=== PATIENT | female | born 1965 | race Two or more races ===

== ENCOUNTER → 2019-03-20 | Outpatient (CLI) | payer OTHER | LOC: RADMRIMAIN 15:23 | PROVIDERS: ATTEND Family Medicine | DX: Z53.9 Procedure and treatment not carried out, unspecified reason (principal) ==

== ENCOUNTER → 2019-03-27 | Outpatient (CLI) | payer OTHER ==
--- NOTE | 2019-03-27 14:35 | MR ---
EXAMINATION TYPE: MR brain wo con DATE OF EXAM: 03/27/2019 COMPARISON: NONE HISTORY: confusion/hallucinations, head trauma T1-weighted sagittal, T2, FLAIR, and diffusion axial, and T2 coronal coronal views of the brain are s ubmitted. There is no evidence of acute ischemia. Changes of chronic sinusitis. Motion artifact limits the exam . There is abnormal attenuation the periventricular white matter with ex vacuo dilation of the left f rontal horn suggestive of previous ischemia. Area of low signal seen on T2 imaging may represent a va scular anomaly or previous hemorrhage and postcontrast imaging suggested. Multiple additional other a reas of abnormal signal are seen scattered throughout the white matter bilaterally. Areas of abnormal signal involving the jeanette may be artifactual. Craniocervical junction maintained. Sella turcica has a normal appearance. Thinning of the corpus dc losum noted. No cerebellopontine angle mass. Report called to referring clinician by telephone. IMPRESSION: 1. There is multiple areas of abnormal signal involving the white matter bilaterally with most marked findings involving the frontal white matter suggestive of remote microvascular ischemia. Demyelinati ng process, ADEM not excluded, correlate clinically. 2. Within the right and left frontal white matter there is additional areas of low signal which may r epresent vascular anomaly, calcification or previous hemorrhage. Post contrast MRI imaging and MRA re commended.
== END | disposition home or self-care (01) ==
LOC: RADMRIMAIN 08:29
PROVIDERS: ATTEND Family Medicine
DX: R90.89 Other abnormal findings on diagnostic imaging of central nervous system (principal); R41.0 Disorientation, unspecified; R44.3 Hallucinations, unspecified
CPT/HCPCS: 70551

== ENCOUNTER → 2019-04-04 | Outpatient (CLI) | payer OTHER ==
--- NOTE | 2019-04-04 14:06 | MR ---
EXAMINATION TYPE: MR brain w con DATE OF EXAM: 04/04/2019 COMPARISON: MRI of the brain dated 03/27/2019 HISTORY: Abnormal mri of brain TECHNIQUE: Multiplanar, multisequence images of the brain and brainstem is performed with IV contrast only, util izing 10 mL intravenous Gadavist . FINDINGS: Postcontrast T1 and FLAIR imaging was performed to evaluate the bifrontal white matter signal abnorma lity seen on the prior MRI of 03/27/2019. In the deep white matter in the area of curvilinear GRE and T2 serpiginous hypointensity there is no abnormal enhancement. Therefore these regions of encephalomalacia with internal serpiginous low inten sity either related to sequela of prior injury and microhemorrhage or calcifications that could be co nfirmed on CT. Within the remainder of the brain there is no suspicious postcontrast enhancement. There is slight ex vacuo dilatation of the anterior horn of the left lateral ventricle noted. Mild mucosal thickening i n the ethmoid and right maxillary sinuses are again seen. IMPRESSION: No abnormal enhancement in the bifrontal white matter in the region of the signal abnorma lity seen on the prior MRI of 03/27/2019 therefore the prior findings relate to either prior injury wi th microhemorrhage or calcifications. CT could assess for calcifications if there is further clinical concern.
--- NOTE | 2019-04-04 14:16 | MR ---
EXAMINATION TYPE: MR angio head wo con DATE OF EXAM: 04/04/2019 COMPARISON: MRI brain dated 03/27/2019 and 04/04/2019 HISTORY: Confusion / Hallucinations / Abn MRI TECHNIQUE: Time of flight images focusing on the [place] were performed without contrast.. 2-D and 3-D postprocessing imaging is performed. FINDINGS: No abnormal enhancement or abnormal vascular anomaly is seen in the bifrontal periventricular white m atter at the location of the previously seen signal abnormality on the prior MRI of 03/27/2019. The vertebral arteries are codominant. The basilar artery and posterior circulation appear patent. Th e intracranial portions of the internal carotid arteries are within normal limits. The posterior comm unicating arteries are either diminutive or hypoplastic. [place] is not definitively intact. No focal aneurysm, hemodynamically significant stenosis, dissection, or focal occlusion of the major intracranial vasculature is seen. IMPRESSION: No abnormal enhancement or vascular abnormalities in the bifrontal white matter in the re gion of the previously seen signal abnormality on the exam of 03/27/2019. No evidence of major intracr anial vascular aneurysm, hemodynamically significant stenosis, dissection or focal occlusion.
== END ==
LOC: RADMRIMAIN 11:56
PROVIDERS: ATTEND Physician Assistant
DX: R41.0 Disorientation, unspecified (principal); R44.3 Hallucinations, unspecified; Z87.828 Personal history of other (healed) physical injury and trauma; Z87.820 Personal history of traumatic brain injury
CPT/HCPCS: 70544; 70552; A9585

== ENCOUNTER 2021-08-30 05:31 | Inpatient (IN) | payer OTHER ==
[2021-08-30] MEDS ORDERED: NITROGLYCERIN SL TABS 0.4 MG TAB SUBLINGUAL PRN (06:00)
[2021-08-30] MEDS ORDERED: MORPHINE SULFATE 4 MG/ML SYRINGE IV STA (06:01)
[2021-08-30] MEDS: HEPARIN SOD,PORK IN 0.45% NACL 25,000 UNIT in 0.45% NACL 1 250ML.BAG IV SCH (06:13)
--- NOTE | 2021-08-30 06:14 | ED ---
Chest Pain HPI - General Chief Complaint: Chest Pain Stated Complaint: Chest Pain Time Seen by Provider: 08/30/21 06:00 Source: EMS Mode of arrival: EMS Limitations: no limitations - History of Present Illness Initial Comments: This patient is a 56-year-old woman who arrives here as a transfer from [facility]. The patient had gone there to be evaluated for chest pain. She states she was having some intermittent substernal chest pains going back about 3 days. A little after 1:30 the pain became very severe. They called the ambulance and brought to the other hospital around 2. The patient did take baby aspirin, she said about 6 tablets. At the other hospital, the patient was felt to be having NSTEMI, was started on heparin and was transferred here. On arrival, patient states she is still having pain, though it is better than it was. The patient states she also has been having some nausea associated with chest pain. No diaphoresis, dyspnea, palpitations or syncope. Patient risk factor includes smoking approximately pack a day and hypertension. MD Complaint: chest pain Onset/Timin -: days(s) Onset: during rest Pain Location: substernal Pain Radiation: none Severity: severe Quality: aching Consistency: constant Improves With: nitroglycerin, medication-other Worsens With: nothing Anginal Symptoms: nausea Treatments Prior to Arrival: aspirin, nitroglycerin, oxygen, other (Heparin) - Related Data Home Medications Medication Instructions Recorded Confirmed No Known Home Medications 08/19/17 08/19/17 Allergies Allergy/AdvReac Type Severity Reaction Status Date / Time Penicillins Allergy Rash/Hives Verified 08/19/17 10:00 Review of Systems ROS Statement: Those systems with pertinent positive or pertinent negative responses have been documented in the HPI. ROS Other: All systems not noted in ROS Statement are negative. Constitutional: Denies: fever, chills, weakness Respiratory: Denies: cough, dyspnea Cardiovascular: Reports: chest pain. Denies: palpitations, orthopnea, edema, syncope Gastrointestinal: Reports: nausea. Denies: abdominal pain, vomiting, diarrhea, constipation, melena, hematochezia Genitourinary: Denies: dysuria, frequency Musculoskeletal: Denies: back pain Skin: Denies: rash Neurological: Denies: headache, weakness, numbness Past Medical History Past Medical History: No Reported History History of Any Multi-Drug Resistant Organisms: None Reported Past Surgical History: Section, Cholecystectomy, Orthopedic Surgery Additional Past Surgical History / Comment(s): rt leg byron, rt arm plate, plastic sx facial Past Anesthesia/Blood Transfusion Reactions: No Reported Reaction Past Psychological History: No Psychological Hx Reported Smoking Status: Current every day smoker Past Alcohol Use History: None Reported Past Drug Use History: None Reported - Past Family History Sister(s) Family Medical History: Cancer Additional Family Medical History / Comment(s): breast Brother(s) Family Medical History: Deep Vein Thrombosis (DVT) General Exam Limitations: no limitations General appearance: alert, in no apparent distress Head exam: Present: atraumatic, normocephalic Eye exam: Present: normal appearance. Absent: scleral icterus, conjunctival injection ENT exam: Present: normal oropharynx Neck exam: Present: normal inspection Respiratory exam: Present: normal lung sounds bilaterally. Absent: respiratory distress, wheezes, rales, rhonchi, stridor Cardiovascular Exam: Present: regular rate, normal rhythm, normal heart sounds. Absent: systolic murmur, diastolic murmur, rubs, gallop GI/Abdominal exam: Present: soft. Absent: distended, tenderness, guarding, rebound, rigid, mass Extremities exam: Present: normal inspection, normal capillary refill. Absent: pedal edema, calf tenderness Back exam: Present: normal inspection. Absent: CVA tenderness (R), CVA tenderness (L) Neurological exam: Present: alert Skin exam: Present: warm, dry, intact, normal color. Absent: rash Course Vital Signs 08/30/21 08/30/21 05:34 06:10 Temperature 98.4 F Pulse Rate 88 89 Respiratory 16 18 Rate Blood Pressure 175/102 150/100 O2 Sat by Pulse 98 Oximetry Chest Pain MDM - MDM Patient's 56-year-old woman transferred here from [facility]. The ECG obtained after arrival here does appear diagnostic for STEMI and the lab scientist was activated. Case then discussed with Dr. Romero, the entry level automotive technician on-call who will come and see the patient in the [employer]. Disposition Clinical Impression: Acute coronary syndrome Disposition: ADMITTED IP TO THIS HOSP Condition: Critical Referrals: Lambert Ramsey MD [Primary Care Provider] - 1-2 days
[2021-08-30] MEDS ORDERED: SODIUM CHLORIDE 0.9% 1,000 ML IV ONE (06:36)
[2021-08-30] MEDS ORDERED: SODIUM CHLORIDE 0.9% 500 ML 500 ML IV ONE (06:36)
[2021-08-30 06:39] LABS: Basophils # (A) 0.1 k/uL (0-0.2); Basophils % (A) 1 %; Eosinophils # (A) 0.5 k/uL (0-0.7); Eosinophils % (A) 4 %; HCT 42.7 % (34.0-46.0); HGB 14.4 gm/dL (11.4-16.0); Lymphocytes # (A) 2.4 k/uL (1.0-4.8); Lymphocytes % (A) 23 %; MCH 31.1 pg (25.0-35.0); MCHC 33.8 g/dL (31.0-37.0); Mean Platelet Volume 8.3; Monocytes # (A) 0.3 k/uL (0-1.0); Monocytes % (A) 2 %; Neutrophils # (A) 7.2 k/uL (1.3-7.7); Neutrophils % (A) 68 %; Platelet Count 242 k/uL (150-450); RBC 4.64 m/uL (3.80-5.40); RDW 13.6 % (11.5-15.5); WBC 10.5 k/uL (3.8-10.6)
[2021-08-30 06:43] LABS: Partial Thromboplastin Time 68.6 sec (22.0-30.0); Prothrombin Time 10.5 sec (9.0-12.0)
[2021-08-30] MEDS ORDERED: LIDOCAINE 1% INJ 10MG/ML (20 ML MDV) ONE (06:44)
[2021-08-30] MEDS ORDERED: VERAPAMIL 2.5 MG/ML 2 ML AMP ONE (06:44)
[2021-08-30] MEDS ORDERED: fentaNYL (PF) 50 MCG/ML 2 ML AMP ONE (06:44)
[2021-08-30] MEDS ORDERED: HEPARIN SODIUM 1,000 UN/ML (10ML VL) ONE (06:50)
[2021-08-30] MEDS ORDERED: MIDAZOLAM 2 MG/2 ML VIAL IV ONE (06:52)
[2021-08-30] MEDS ORDERED: LIDOCAINE 1% INJ 10MG/ML (10 ML MDV) SQ ONE ×2 (06:56→07:00)
[2021-08-30 06:57] LABS: AST 47 U/L (14-36); African American GFR (CKD) >90 (>60 ml/min/1.73 sqM); Albumin 4.2 g/dL (3.5-5.0); Anion Gap 6 mmol/L; Blood Urea Nitrogen 11 mg/dL (7-17); Calcium 9.3 mg/dL (8.4-10.2); Carbon Dioxide 26 mmol/L (22-30); Chloride 104 mmol/L (98-107); Glucose 129 mg/dL (74-99); Non-African American GFR(CKD) >90 (>60 ml/min/1.73 sqM); Sodium 136 mmol/L (137-145); Total Bilirubin 0.6 mg/dL (0.2-1.3); Total Protein 6.9 g/dL (6.3-8.2)
[2021-08-30] MEDS ORDERED: VERAPAMIL SYRINGE (5 MG/10 ML) INTRAARTER ONE ×2 (06:59→07:01)
[2021-08-30 07:06] LABS: ALT 38 U/L (4-34); Alkaline Phosphatase 79 U/L (38-126); Potassium 4.7 mmol/L (3.5-5.1)
[2021-08-30] MEDS ORDERED: HEPARIN SODIUM 1,000 UN/ML (10ML VL) IV ONE (07:11)
[2021-08-30] MEDS ORDERED: TIROFIBAN 12.5MG-250ML NS 250 ML IV ONE (07:15)
[2021-08-30] MEDS ORDERED: TIROFIBAN BOLUS 12.5MG/250 ML BAG IV ONE (07:16)
[2021-08-30] MEDS ORDERED: IOPAMIDOL-370 100ML BTL INJ ONE ×2 (07:29→07:51)
[2021-08-30] MEDS ORDERED: CLOPIDOGREL 75 MG TAB ONE (07:39)
[2021-08-30] MEDS ORDERED: NITROGLYCERIN 1000MCG/10ML SYRINGE INTRACORON ONE (07:42)
[2021-08-30] MEDS ORDERED: CLOPIDOGREL 75 MG TAB PO ONE (07:43)
[2021-08-30 08:28] LABS: Glucose,Whole Blood 133 mg/dL (75-99)
[2021-08-30] MEDS: SODIUM CHLORIDE 0.9% 1,000 ML IV SCH (08:30)
[2021-08-30] MEDS ORDERED: TIROFIBAN 12.5MG-250ML NS 250 ML IV SCH (09:00)
--- NOTE | 2021-08-30 09:18 | CC ---
CARDIAC CATHETERIZATION REPORT CARDIAC CATHETERIZATION AND PTCA REPORT: DATE OF SERVICE: 08/30/2021 PERFORMED BY: Dr. Alexandre Romero. PROCEDURE: 1. Coronary angiography. 2. PTCA and stenting of a totally occluded mid circumflex with a drug-eluting stent. Moderate conscious sedation time was 59 minutes. CLINICAL INFORMATION: Mrs. Lamar Gaytan is a 56-year-old lady with a history of smoking, hypertension, chronic pain syndrome. She went to [facility] at about midnight or so complaining of chest pain lasting 3-4 days' duration, had ST-segment changes and mild troponin elevation. She was placed on heparin and transferred here. After arrival she was found to have ST elevation. EKGs from [facility] also suggested inferior ST elevation. A STEMI alert was called and I came in to see the patient in the quality lab technician. PROCEDURE NOTE: Under local anesthesia and strict aseptic precautions, a 6-Monegasque introducer was placed in the right radial artery. Using a JR4 catheter, I performed selective coronary angiography of the right coronary, and a JL3.5 catheter was used to perform selective coronary angiography of the left coronary artery. Both were guide catheters. I did not check LV pressures. I noted the circumflex was totally occluded and proceeded with PCI of this vessel. Following the PCI, the sheath was taken out and TR band applied as per protocol, and saturation in the fingers of the right hand was 98%. Results were discussed with the patient and family and she was sent to the room in a stable condition. PCI PROCEDURE DETAILS: Initially I used JL3.5 guide catheter, but I had difficulty getting good guide support. I could not advance the wire into the circumflex, which was quite tortuous and came off at a 90-degree angle. I switched over to an XB3.0 guide catheter. With this I had better guide support, and a Whisper wire was used to cross the lesion. Wire was kept distally. A 2.5 caliber 12 mm Trek balloon was used to pre-dilate the lesion. I then deployed a 2.75 caliber 18 mm Xience stent in the mid portion and another 8 mm 2.75 caliber Xience stent proximal to it, telescoping right at the trifurcation of this vessel. Excellent angiographic result was achieved. Patient's chest pain resolved and EKG normalized. There was a JESSENIA-3 flow. She had transient hypotension when she was having an uncomfortable abdominal feeling and after the bowel movement the blood pressure came back. She received some IV fluids for this. Excellent angiographic result without complication was achieved. Two drug-eluting stents were deployed in the mid circumflex, which was totally occluded. Patient received heparin of about 4000 units here and she received 5000 units in [facility]. I also placed her on an Aggrastat drip. ACT was over 300. Results were discussed with the patient and family and she was sent to the room in a stable condition. She received 600 mg of Plavix. CARDIAC CATHETERIZATION FINDINGS: LEFT MAIN CORONARY ARTERY: Short patent vessel. No significant disease. Bifurcates into LAD and circumflex. LEFT ANTERIOR DESCENDING CORONARY ARTERY: It has a 40% proximal lesion and the small ramus comes off right below the left main. LAD has what seems to be diffuse irregularities of about 30% to 40% throughout and gives off a good-sized diagonal branch in the mid portion. Entire LAD has mild to moderate diffuse atherosclerotic disease seen throughout. LEFT POSTERIOR CIRCUMFLEX CORONARY ARTERY: This vessel is totally occluded in the mid portion after a groove branch and a small obtuse marginal branch. The opacified portion of circumflex is quite tortuous. There is a 90-degree angle coming off from the LAD and another 90-degree angle before total occlusion. Circumflex is therefore the culprit vessel. RIGHT CORONARY ARTERY: Dominant vessel. No significant disease in the proximal portion. Mid portion has mild diffuse irregularities, 30% to 40%. It distally bifurcates into PDA and PLV, both of which supply a fair amount of myocardium. Left ventriculogram was not performed. FINAL IMPRESSION: This patient has total occlusion of mid circumflex, which is the culprit lesion, with an ST-elevation myocardial infarction, moderate disease in LAD of 40% in the proximal portion, and also 35% to 40% proximal RCA dominant vessel is diseased. Circumflex PCI was performed expeditiously. MARI / MELODY: [id number] /
--- NOTE | 2021-08-30 09:21 | CONS ---
CONSULTATION Mrs. Lamar Gaytan was transferred from [facility] after being given a heparin drip with chest pain and mild troponin elevation. EKG actually revealed ST elevation at [facility] and also had ST elevation here. A STEMI alert was called and I saw the patient in the photo lab specialist. She was relatively comfortable and had only mild chest discomfort, hemodynamically stable. She smokes over a pack a day, has hypertension and also headache and pain syndrome. She takes lot of pain medications and gabapentin. She was hemodynamically stable and had mild chest discomfort at the time of my evaluation. PAST MEDICAL HISTORY: 1. Hypertension. 2. Chronic pain syndrome with headache. 3. Smoking and COPD. MEDICATIONS: Medications include verapamil, gabapentin and hydrocodone. ALLERGIES: PENICILLIN. PHYSICAL EXAMINATION: On examination, blood pressure 140/80, pulse rate 92 per minute. HEENT: Unremarkable. Fundus was not examined by me. Neck is supple. No JVD. I do not hear a carotid bruit. There is no thyromegaly. Heart exam reveals S1, S2 heard normally. No rub, murmur or gallop. Lungs are clear. Abdomen is soft, nontender. Lower extremities reveal palpable pulses. No edema. Central nervous system is normal. EKG revealed inferior ST-elevation sinus mechanism. IMPRESSION: 1. Acute inferior ST-elevation myocardial infarction. 2. Hypertension. 3. History of smoking. RECOMMENDATIONS: I recommended catheterization and PCI and performed this procedure expeditiously. MARI / MELODY: [id number] /
[2021-08-30] MEDS: ATORVASTATIN 80 MG TAB PO SCH (09:47)
[2021-08-30] MEDS: NICOTINE 14MG/24HR PATCH TRANSDERM SCH (09:48)
[2021-08-30] MEDS: LOSARTAN 50 MG TAB PO SCH (09:48)
[2021-08-30] MEDS: ASPIRIN 81 MG PO SCH (09:48)
[2021-08-30] MEDS: METOPROLOL TARTRATE 12.5 MG TAB PO SCH ×2 (09:48→20:03)
--- NOTE | 2021-08-30 10:59 | ECHOF ---
Referral Reason:Acute Inf STEMI MEASUREMENTS -------- HEIGHT: 165.1 cm WEIGHT: 90.7 kg BP: 119/77 RVIDd: 2.5 cm (< 3.3) IVSd: 1.4 cm (0.6 - 1.1) LVIDd: 4.4 cm (3.9 - 5.3) LVPWd: 1.5 cm (0.6 - 1.1) IVSs: 1.5 cm LVIDs: 3.8 cm LVPWs: 1.9 cm LAESV Index (A-L): 33.49 ml/m Ao Diam: 3.0 cm (2.0 - 3.7) AV Cusp: 2.0 cm (1.5 - 2.6) LA Diam: 4.2 cm (2.7 - 3.8) MV EXCURSION: 14.126 mm (> 18.000) MV EF SLOPE: 62 mm/s (70 - 150) EPSS: 0.7 cm MV E Fei: 0.90 m/s MV DecT: 160 ms MV A Fei: 1.08 m/s MV E/A Ratio: 0.84 RAP: 5.00 mmHg RVSP: 33.06 mmHg FINDINGS -------- Sinus rhythm. This was a technically difficult study with suboptimal views. Patient is post cardiac catheterization and cannot be in left lateral position. The left ventricular size is normal. There is moderate concentric left ventricular hypertrophy. O verall left ventricular systolic function is mild-moderately impaired with, an EF between 40 - 45 %. Basal lateral LV wall motion is hypokinetic. Mid lateral LV wall motion is hypokinetic. Mid i nferior LV wall motion is hypokinetic. The right ventricle is normal in size. LA is midly dilated 29-33ml/m2. The right atrial size is normal. 5.0mg of Lumason was utilized for enhancement of images Interatrial and interventricular septum intact. The aortic valve is trileaflet and appears structurally normal. There is no evidence of aortic regu rgitation. There is no evidence of aortic stenosis. Mild mitral regurgitation is present. Mild tricuspid regurgitation present. There is no evidence of pulmonary hypertension. The right v entricular systolic pressure, as measured by Doppler, is 33.06mmHg. There is no pulmonic regurgitation present. The aortic root size is normal. IVC Not well visulized. Echo free space represents a pericardial fat pad. There is no pericardial effusion. CONCLUSIONS -------- 1. The left ventricular size is normal. 2. There is moderate concentric left ventricular hypertrophy. 3. Overall left ventricular systolic function is mild-moderately impaired with, an EF between 40 - 45 %. 4. Basal lateral LV wall motion is hypokinetic. 5. Mid lateral LV wall motion is hypokinetic. 6. Mid inferior LV wall motion is hypokinetic. 7. LA is midly dilated 29-33ml/m2. 8. Mild mitral regurgitation is present. 9. Mild tricuspid regurgitation present. [employer] DRIVER: Maria Fernanda Hernandez RDCS
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
--- NOTE | 2021-08-30 12:45 | XR ---
EXAMINATION TYPE: XR chest 1V portable DATE OF EXAM: 08/30/2021 COMPARISON: NONE HISTORY: Shortness of breath TECHNIQUE: Single frontal view of the chest is obtained. FINDINGS: There is no focal air space opacity, pleural effusion, or pneumothorax seen. The cardiac silhouette size is within normal limits. The osseous structures are intact. IMPRESSION: No acute process.
[2021-08-30] MEDS: CLINDAMYCIN 150 MG CAP PO SCH ×3 (17:27→23:04)
[2021-08-31] MEDS: SODIUM CHLORIDE 0.9% 1,000 ML IV SCH (00:17)
[2021-08-31 03:55] LABS: Basophils # (A) 0.1 k/uL (0-0.2); Basophils % (A) 1 %; Eosinophils # (A) 0.3 k/uL (0-0.7); Eosinophils % (A) 3 %; HCT 41.2 % (34.0-46.0); HGB 13.4 gm/dL (11.4-16.0); Lymphocytes # (A) 2.2 k/uL (1.0-4.8); Lymphocytes % (A) 18 %; MCH 30.8 pg (25.0-35.0); MCHC 32.6 g/dL (31.0-37.0); MCV 94.3 fL (80.0-100.0); Mean Platelet Volume 8.2; Monocytes # (A) 0.5 k/uL (0-1.0); Monocytes % (A) 4 %; Neutrophils # (A) 8.9 k/uL (1.3-7.7); Neutrophils % (A) 74 %; Platelet Count 176 k/uL (150-450); RBC 4.37 m/uL (3.80-5.40); RDW 13.6 % (11.5-15.5); WBC 12.1 k/uL (3.8-10.6)
[2021-08-31 04:06] LABS: African American GFR (CKD) >90 (>60 ml/min/1.73 sqM); Anion Gap 6 mmol/L; Blood Urea Nitrogen 8 mg/dL (7-17); Calcium 9.3 mg/dL (8.4-10.2); Carbon Dioxide 25 mmol/L (22-30); Chloride 104 mmol/L (98-107); Glucose 114 mg/dL (74-99); Non-African American GFR(CKD) >90 (>60 ml/min/1.73 sqM); Potassium 4.5 mmol/L (3.5-5.1); Sodium 135 mmol/L (137-145)
[2021-08-31] MEDS: HEPARIN SOD,PORK IN 0.45% NACL 25,000 UNIT in 0.45% NACL 1 250ML.BAG IV SCH (06:37)
[2021-08-31] MEDS: CLINDAMYCIN 150 MG CAP PO SCH ×4 (06:59→23:35)
[2021-08-31] MEDS: ASPIRIN 81 MG PO SCH (08:38)
[2021-08-31] MEDS: NICOTINE 14MG/24HR PATCH TRANSDERM SCH (08:38)
[2021-08-31] MEDS: CLOPIDOGREL 75 MG TAB PO SCH (08:38)
[2021-08-31] MEDS: LOSARTAN 50 MG TAB PO SCH (08:38)
[2021-08-31] MEDS: ATORVASTATIN 80 MG TAB PO SCH (08:38)
[2021-08-31] MEDS: METOPROLOL TARTRATE 12.5 MG TAB PO SCH ×2 (08:38→21:10)
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
[2021-08-31] MEDS: SPIRONOLACTONE 25 MG TAB PO SCH (13:36)
[2021-09-01 00:18] VITALS: TEMP 98.8
[2021-09-01 04:11] VITALS: PULSE 85
[2021-09-01] MEDS: CLINDAMYCIN 150 MG CAP PO SCH (05:30)
[2021-09-01 06:13] VITALS: RESP 18
--- NOTE | 2021-09-01 08:38 | P.PN ---
Subjective Progress Note Date: 09/01/21 Principal diagnosis: Acute ST deviation myocardial infarction The patient is a pleasant 56-year-old female patient with history of smoking who was admitted to the hospital with acute ST patient myocardial infarction beach she underwent an emergent heart catheterization and stenting of the left circumflex coronary artery. She was seen this morning. She is asymptomatic from a cardiovascular standpoint of view. She is hemodynamically stable. The echo showed mildly impaired LV function was EF between 40-45%. From the cardiovascular standpoint of view, the patient seems to be stable and would like to go home. On dual antiplatelet therapy along with high intensity statin along with anti-ischemic medications Objective - Vital Signs Vital signs: Vital Signs Temp 98.8 F 09/01/21 04:00 Pulse 85 09/01/21 04:00 Resp 18 09/01/21 04:00 BP 117/72 09/01/21 04:00 Pulse Ox 96 08/31/21 16:00 Intake & Output 08/31/21 09/01/21 09/01/21 18:59 06:59 18:59 Intake Total 925 200 Output Total 300 Balance 625 200 Weight 92.3 kg Intake: IV 75 Sodium Chloride 0.9% 1, 75 000 ml @ 75 mls/hr IV . [id number] [facility] Rx#:[id number] Oral 850 200 Output: Urine 300 Other: Voiding Method Toilet Toilet Bedside Commode # Voids 2 2 # Bowel Movements 1 - Constitutional General appearance: Present: no acute distress - Respiratory Respiratory: bilateral: CTA - Cardiovascular Rhythm: regular Heart sounds: normal: S1, S2 - Labs CBC & Chem 7: 08/31/21 03:18 08/31/21 03:18 Assessment and Plan Assessment: Assessment #[address] elevation myocardial infarction and status post PCI of the LCx #2 significant history of smoking. Plan #1 continue the current medical regimen including dual antiplatelet therapy along with high intensity statin #2 the echo was reviewed and showed mildly impaired LV function #3 the patient can be discharged home from the cardiac standpoint
[2021-09-01 09:26] VITALS: BP 113/68
[2021-09-01] MEDS: METOPROLOL TARTRATE 12.5 MG TAB PO SCH (10:37)
[2021-09-01] MEDS: NICOTINE 14MG/24HR PATCH TRANSDERM SCH (10:37)
[2021-09-01] MEDS: LOSARTAN 50 MG TAB PO SCH (10:38)
[2021-09-01] MEDS: SPIRONOLACTONE 25 MG TAB PO SCH (10:38)
[2021-09-01] MEDS: ASPIRIN 81 MG PO SCH (10:38)
[2021-09-01] MEDS: CLOPIDOGREL 75 MG TAB PO SCH (10:38)
[2021-09-01] MEDS: ATORVASTATIN 80 MG TAB PO SCH (10:38)
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
== END 2021-09-01 16:12 | disposition home health service (06) | DRG 247 ==
LOC: SUPCPDRO 05:31 → EC 05:31 → 2SICU 06:36
PROVIDERS: ADMIT Hospitalist; ATTEND Hospitalist
PROC: 027035Z Dilation of Coronary Artery, One Artery with Two Drug-eluting Intraluminal Devices, Percutaneous Approach (ICD-10-PCS; principal; 2021-08-30 06:31)
PROC: B2111ZZ Fluoroscopy of Multiple Coronary Arteries using Low Osmolar Contrast (ICD-10-PCS; 2021-08-30 06:31)
PROC: 4A023N7 Measurement of Cardiac Sampling and Pressure, Left Heart, Percutaneous Approach (ICD-10-PCS; 2021-08-30 06:31)
DX: I21.19 ST elevation (STEMI) myocardial infarction involving other coronary artery of inferior wall (principal); E78.5 Hyperlipidemia, unspecified; F17.210 Nicotine dependence, cigarettes, uncomplicated; Z71.6 Tobacco abuse counseling; F32.9 Major depressive disorder, single episode, unspecified; F41.9 Anxiety disorder, unspecified; G89.4 Chronic pain syndrome; I10 Essential (primary) hypertension; I25.10 Atherosclerotic heart disease of native coronary artery without angina pectoris; I25.5 Ischemic cardiomyopathy; J44.9 Chronic obstructive pulmonary disease, unspecified; K21.9 Gastro-esophageal reflux disease without esophagitis; M15.9 Polyosteoarthritis, unspecified; Z20.822 Contact with and (suspected) exposure to COVID-19; R51.9 Headache, unspecified; Z60.2 Problems related to living alone; Z56.0 Unemployment, unspecified; Z79.1 Long term (current) use of non-steroidal anti-inflammatories (NSAID); Z79.899 Other long term (current) drug therapy; Z80.3 Family history of malignant neoplasm of breast; R56.9 Unspecified convulsions; V89.2XXS Person injured in unspecified motor-vehicle accident, traffic, sequela; Z98.890 Other specified postprocedural states; Z90.49 Acquired absence of other specified parts of digestive tract; R11.0 Nausea; Z88.1 Allergy status to other antibiotic agents; Z88.0 Allergy status to penicillin; Z88.8 Allergy status to other drugs, medicaments and biological substances; Z83.2 Family history of diseases of the blood and blood-forming organs and certain disorders involving the immune mechanism
CPT/HCPCS: 36415; 71045; 80048; 80053; 84484; 85025; 85610; 85730; 87635; 93005; 93306; 93454; 96374; 99285

== ENCOUNTER 2022-11-26 15:29 | Emergency (ER) | payer OTHER ==
[2022-11-26 15:39] VITALS: TEMP 98.6
--- NOTE | 2022-11-26 15:57 | ED ---
Chest Pain HPI - General Chief Complaint: Chest Pain Stated Complaint: Chest Pain Time Seen by Provider: 11/26/22 15:38 Source: patient Mode of arrival: ambulatory Limitations: no limitations - History of Present Illness Initial Comments: This patient is a 57-year-old woman with history of 2 prior stents who arrives today to have evaluation of substernal chest pain. She states she had 2 episodes of this. The initial one was around 4 AM she had gotten up to make lunch for her partner to take to work. She noticed pain substernal, heavy and it did resolve after number minutes when she took nitroglycerin. She did not have associated symptoms. He states that the symptoms recurred when she got up today. She took aspirin and nitroglycerin and this second episode resolved as well. There were no associated symptoms with this episode either. MD Complaint: chest pain Onset/Timin -: hour(s) Onset: other Pain Location: substernal Pain Radiation: none Severity: moderate Quality: heaviness Consistency: now resolved Improves With: nitroglycerin Worsens With: nothing Treatments Prior to Arrival: aspirin, nitroglycerin - Related Data Home Medications Medication Instructions Recorded Confirmed Desvenlafaxine Succinate [Pristiq] 100 mg PO DAILY 08/30/21 11/26/22 Omeprazole 20 mg PO DAILY 08/30/21 11/26/22 Gabapentin 300 mg PO TID 11/26/22 11/26/22 Hydrocodone/Acetaminophen 1 tab PO TID PRN 11/26/22 11/26/22 [Hydrocodone/Acetaminophen 10-325] Losartan Potassium [Cozaar] 25 mg PO DAILY 11/26/22 11/26/22 Rosuvastatin [Crestor] 20 mg PO DAILY 11/26/22 11/26/22 Previous Rx's Medication Instructions Recorded Aspirin 81 mg PO DAILY tab 09/01/21 Metoprolol Tartrate [Lopressor] 12.5 mg PO BID #60 tab 09/01/21 Nitroglycerin Sl Tabs [Nitrostat] 0.4 mg SUBLINGUAL Q5M PRN #30 tab 09/01/21 Allergies Allergy/AdvReac Type Severity Reaction Status Date / Time carbamazepine [From Tegretol] Allergy Rash/Hives Verified 11/26/22 17:16 ciprofloxacin [From Cipro] Allergy Unknown Verified 11/26/22 17:16 Penicillins Allergy Rash/Hives Verified 11/26/22 17:16 Review of Systems ROS Statement: Those systems with pertinent positive or pertinent negative responses have been documented in the HPI. ROS Other: All systems not noted in ROS Statement are negative. Constitutional: Denies: fever, chills Respiratory: Denies: cough, dyspnea Cardiovascular: Reports: chest pain. Denies: palpitations, orthopnea, edema, syncope Gastrointestinal: Denies: abdominal pain, vomiting, diarrhea Genitourinary: Denies: dysuria, hematuria Musculoskeletal: Denies: back pain Skin: Denies: rash Neurological: Denies: headache, weakness, numbness EKG Findings - EKG Results: EKG: interpreted by ERMD, sinus rhythm (With occasional ectopic complex), normal axis EKG shows: bradycardia (Rate 55 bpm) - Blocks, [place], Hypertrophy, ST Abn: QRS axis and voltage: low voltage (<0.5 MV total QRS and <1.0 MV in each precordial lead) Repolarization changes or abnormalities: nonspecific abnormality, ST segment, and/or T wave Past Medical History Past Medical History: No Reported History, Coronary Artery Disease (CAD), Chest Pain / Angina Additional Past Medical History / Comment(s): post chi approx 20 yrs ago History of Any Multi-Drug Resistant Organisms: None Reported Past Surgical History: Section, Cholecystectomy, Heart Catheterization With Stent, Orthopedic Surgery Additional Past Surgical History / Comment(s): rt leg byron, rt arm plate, plastic sx facial Past Anesthesia/Blood Transfusion Reactions: No Reported Reaction Date of Last Stent Placement:: 08/30/2021 Past Psychological History: No Psychological Hx Reported Smoking Status: Current every day smoker Past Alcohol Use History: None Reported Past Drug Use History: None Reported - Past Family History Sister(s) Family Medical History: Cancer Additional Family Medical History / Comment(s): breast Brother(s) Family Medical History: Deep Vein Thrombosis (DVT) General Exam Limitations: no limitations General appearance: alert, in no apparent distress Head exam: Present: atraumatic, normocephalic Eye exam: Present: normal appearance. Absent: scleral icterus, conjunctival injection Neck exam: Present: normal inspection Respiratory exam: Present: normal lung sounds bilaterally. Absent: respiratory distress, wheezes, rales, rhonchi, stridor Cardiovascular Exam: Present: regular rate, normal rhythm, normal heart sounds. Absent: systolic murmur, diastolic murmur, rubs, gallop GI/Abdominal exam: Present: soft. Absent: distended, tenderness, guarding, rebound, rigid, mass Extremities exam: Present: normal inspection, normal capillary refill. Absent: pedal edema, calf tenderness Back exam: Present: normal inspection. Absent: CVA tenderness (R), CVA tenderness (L) Neurological exam: Present: alert Skin exam: Present: warm, dry, intact, normal color. Absent: rash Course Vital Signs 11/26/22 11/26/22 15:37 19:42 Temperature 98.6 F Pulse Rate 58 L 67 Respiratory 20 16 Rate Blood Pressure 113/40 113/55 O2 Sat by Pulse 96 95 Oximetry Chest Pain [facility] This patient is a 57-year-old woman presenting with 2 episodes of chest pain earlier today, the first resolved with nitroglycerin tablet, second resolved with aspirin. Interpreted the chest x-ray as being negative for infiltrate, vascular congestion, cardiomegaly. Workup here is unremarkable, but given her previous history and the fact that pain was relieved with nitroglycerin, I did recommend admission for at least telemetry monitoring and serial cardiac enzymes and cardiology consultation. The patient states that she is symptom free. She wants to follow up in the near term with cardiology she has established relationship with. She does agree to return should any symptoms recur. She does understand there is small risk of missed cardiac event as well as worsening possibly including sudden cardiac . Was pt. sent in by a medical professional or institution? @ -[no Did you speak to anyone other than the patient for history? @ -[no Did you review nursing and triage notes? @ -[agree Were old charts reviewed? @ -[Previous hospital admission Differential Diagnosis? @ -[Differential Chest Pain: Stable Angina, Unstable Angina, STEMI, NSTEMI Aortic Dissection, Pneumothorax, Musculoskeletal, Esophageal Spasm GERD, Cholecystitis, Pancreatitis, Zoster, this is not meant to be an all-inclusive list. EKG interpreted by me (3pts min.)? @ -[See chart X-rays interpreted by me (1pt min.)? @ -[See chart CT interpreted by me (1pt min.)? @ -[none] U/S interpreted by me (1pt. min.)? @ -[none] What testing was considered but not performed? (CT, X-rays, U/S, labs)? Why? @ [no What meds were considered but not given? Why? @ -[none] Did you discuss the management of the patient with other professionals? @ -[No Did you reconcile home meds? @ -[none] Was smoking cessation discussed for >3mins.? @ -[none] Was critical care preformed (if so, how long)? @ -[none] Were there social determinants of health that impacted care today? How? (Homelessness, low income, unemployed, alcoholism, drug addiction, transpor tation, low edu. Level, literacy, decrease access to med. care, long term, rehab)? @ -[No Was there de-escalation of care discussed even if they declined? (Discuss DNR or withdrawal of care, Hospice)? @ -[No What co-morbidities impacted this encounter? (DM, HTN, Smoking, COPD, CAD, Cancer, CVA, Hep., AIDS, mental health diagnosis, sleep apnea, morbid obesity)? @ -[CAD Was patient admitted / discharged? @ -[Left AGAINST MEDICAL ADVICE Undiagnosed new problem with uncertain prognosis? @ -[none] Drug Therapy requiring intensive monitoring for toxicity (Heparin, Nitro, Insulin, Cardizem)? @ -[none] Were any procedures done? @ -[none] Diagnosis/symptom? @ -[Chest pain Acute, or Chronic, or Acute on Chronic? @ -[Acute Uncomplicated (without systemic symptoms) or Complicated (systemic symptoms)? @ -[Uncomplicated Side effects of treatment? @ -[none] Exacerbation, Progression, or Severe Exacerbation] @ -[no] Poses a threat to life or bodily function? @ -[Unknown Disposition Clinical Impression: Chest pain Disposition: Left Against Medical Advice Condition: Fair Instructions (If sedation given, give patient instructions): Chest Pain (ED) Is patient prescribed a controlled substance at d/c from ED?: No Referrals: None,Stated [Primary Care Provider] - 1-2 days Iman Bryant MD [STAFF PHYSICIAN] - 1-2 days
[2022-11-26] MEDS ORDERED: ASPIRIN 81 MG PO STA (16:31)
[2022-11-26 16:32] LABS: Basophils % (A) 1 %; Eosinophils # (A) 0.4 k/uL (0-0.7); Eosinophils % (A) 5 %; HCT 37.8 % (34.0-46.0); HGB 12.9 gm/dL (11.4-16.0); Lymphocytes # (A) 2.7 k/uL (1.0-4.8); Lymphocytes % (A) 34 %; MCH 30.5 pg (25.0-35.0); MCHC 34.1 g/dL (31.0-37.0); MCV 89.5 fL (80.0-100.0); Monocytes # (A) 0.3 k/uL (0-1.0); Monocytes % (A) 3 %; Neutrophils # (A) 4.4 k/uL (1.3-7.7); Neutrophils % (A) 56 %; Platelet Count 189 k/uL (150-450); RBC 4.23 m/uL (3.80-5.40); RDW 12.6 % (11.5-15.5); WBC 7.9 k/uL (3.8-10.6)
[2022-11-26 16:41] LABS: Partial Thromboplastin Time 25.5 sec (22.0-30.0); Prothrombin Time 10.1 sec (9.0-12.0)
--- NOTE | 2022-11-26 16:41 | XR ---
EXAMINATION TYPE: XR chest 2V DATE OF EXAM: 11/26/2022 4:32 PM COMPARISON: Chest radiographs from 08/30/2021 TECHNIQUE: XR chest 2V Frontal and lateral views of the chest. CLINICAL INDICATION:Female, 57 years old with history of Chest Pain; FINDINGS: Lungs/Pleura: There is flattening of the diaphragm with increased lucency of the lungs. No evidence o f pneumothorax, pleural effusion or focal consolidation. Pulmonary vascularity: Unremarkable. Heart/mediastinum: Cardiomediastinal silhouette is unremarkable. Musculoskeletal: No acute osseous pathology. IMPRESSION: No acute cardiopulmonary disease/process.
[2022-11-26 16:42] LABS: ALT 20 U/L (4-34); AST 22 U/L (14-36); African American GFR (CKD) >90 (>60 ml/min/1.73 sqM); Albumin 3.9 g/dL (3.5-5.0); Alkaline Phosphatase 48 U/L (38-126); Amylase 44 U/L (30-110); Anion Gap 3 mmol/L; Blood Urea Nitrogen 13 mg/dL (7-17); Calcium 9.1 mg/dL (8.4-10.2); Carbon Dioxide 29 mmol/L (22-30); Chloride 109 mmol/L (98-107); Glucose 82 mg/dL (74-99); Lipase 168 U/L (23-300); Magnesium 2.1 mg/dL (1.6-2.3); Non-African American GFR(CKD) >90 (>60 ml/min/1.73 sqM); Potassium 4.3 mmol/L (3.5-5.1); Sodium 141 mmol/L (137-145); Total Bilirubin 0.4 mg/dL (0.2-1.3); Total Protein 6.2 g/dL (6.3-8.2)
[2022-11-26 19:44] VITALS: BP 113/55; PULSE 67; RESP 16
== END 2022-11-26 19:42 | disposition left against medical advice (07) ==
LOC: SUPCPDRO 15:29 → EC 15:29
DX: R07.89 Other chest pain (principal); I25.10 Atherosclerotic heart disease of native coronary artery without angina pectoris; F17.200 Nicotine dependence, unspecified, uncomplicated; Z53.29 Procedure and treatment not carried out because of patient's decision for other reasons; Z88.0 Allergy status to penicillin; Z88.1 Allergy status to other antibiotic agents
CPT/HCPCS: 36415; 71046; 80053; 82150; 83690; 83735; 83880; 84484; 85025; 85610; 85730; 93005; 99285